=== PATIENT | male | born 1940 | race Caucasian/White ===

== ENCOUNTER 2017-07-11 15:48 | Emergency (ER) | payer OTHER, BC ==
[~2017-07-11] VITALS: Ht 177.8 cm; Wt 97.5 kg
[~2017-07-11 15:48] MED LIST: ALLOPURINOL 10100 M1 PO; ASPIR 8181 MG PO; BINOSTO70 MG; CELEBREX100 MG/1 C; CIPRO500 MG PO; CLONAZEPAM 0.50.5 M1 PO; COUMADIN 2.5MG2.5 M1 PO; CYMBALTA60 MG PO; DIFLUCAN200 MG PO; FLEXERIL PO; FLOMAX0.4 MG; FOLIC ACID 40400 MCG PO; GLUCOPHAGE PO; GLUCOSAMINE HC500 MG PO; HYDROCHLOROTHIA25 M2 PO; IRON325; KEFLEX500 MG PO; LANTUS SC; LASIX 40 MG TAB40 M2 PO; LISINOPRIL40 MG PO; LOPRESSOR25 PO; MACROBID 100 M100 M1 PO; NORVASC10 MG PO; PACERONE 200 M200 MG; POTASSIUM20 PO; PROZAC20 MG PO; TOPROL XL25 MG PO; TRAMADOL 50 MG50 MG PO; VITAMIN B122500 MCG; ZOCOR20 MG PO; ZOCOR40 MG PO; [UNRECOGNIZED DRUG - REMARK]
[2017-07-11 16:26] LABS: URINE BILIRUBIN NEGATIVE (Negative); URINE BLOOD 3+ (Negative); URINE CLARITY SL CLOUDY; URINE COLOR YELLOW; URINE GLUCOSE-RANDOM* NEGATIVE (Negative); URINE KETONES NEGATIVE (Negative); URINE LEUKOCYTES 3+ (Negative); URINE NITRITE NEGATIVE (Negative); URINE PROTEIN (DIPSTICK) 1+ (Negative); URINE SPECIFIC GRAVITY 1.025 (1.005-1.035); URINE UROBILINOGEN 0.2 E.U./dl (0.2-1.0)
[2017-07-11 16:32] LABS: CASTS None Seen /LPF (None Seen); MUCUS 0-3 Light strn/LPF (None Seen); SQUAMOUS 4-10 Moderate /LPF (0-3)
[2017-07-11 16:33] LABS: BACTERIA 1-9 Few /HPF (None Seen); CRYSTALS None Seen /LPF (None Seen); URINE RBC 3-10 Few /HPF (0-2); URINE WBC >25 Many /HPF (0-5); WBC CLUMPS Packed (None Seen)
[2017-07-11 17:15] LABS: ABSOLUTE NEUTROPHILS 2.6 thou/uL (1.4-8.2); BASOPHILS 1.1 % (0.0-2.0); EOSINOPHILS 8.5 % (0.0-3.0); HEMATOCRIT 36.7 % (42.0-52.0); HEMOGLOBIN 11.9 gm/dL (14.0-18.0); LYMPHOCYTES 28.6 % (24.0-44.0); MCH 25.1 pg (26.0-34.0); MCHC 32.5 g/dL (28.0-37.0); MCV 77.2 fL (80.0-100.0); PLATELET COUNT 229 thou/uL (150-400); POLYS 50.8 % (36.0-66.0); RBC 4.75 mil/uL (4.50-6.00); RDW 16.4 % (10.5-14.5); WBC 5.1 thou/uL (4.0-11.0)
[2017-07-11 17:34] LABS: CALCIUM 8.9 mg/dL (8.5-10.1); POTASSIUM 4.2 mmol/L (3.5-5.1)
[2017-07-11 17:37] LABS: ALBUMIN 2.8 g/dL (3.4-5.0); TOTAL BILIRUBIN 0.2 mg/dL (<0.1-1.0); TOTAL PROTEIN 7.1 g/dL (6.4-8.2)
[2017-07-11] MEDS ORDERED: BACTRIM DS TAB1 EACH PO (17:50)
[2017-07-11 19:55] VITALS: BP 131/67
== END 2017-07-11 19:56 | disposition home or self-care (01) ==
LOC: ER 15:48
PROVIDERS: Nurse Practitioner Family
DX: N39.0 Urinary tract infection, site not specified (principal); I10 Essential (primary) hypertension; E11.9 Type 2 diabetes mellitus without complications; E78.00 Pure hypercholesterolemia, unspecified

== ENCOUNTER 2018-01-06 17:13 | Inpatient (IN) | payer OTHER, BC ==
[~2018-01-06] VITALS: Ht 180.3 cm; Wt 108.9 kg
[~2018-01-06 17:13] MED LIST changes: +BACTRIM DS TAB1 EACH PO; +HYDROCODONE-AP1 EAC6 PO; +NORFLEX100 MG PO; +PRIMIDONE50 MG PO
[2018-01-06 17:16] VITALS: BP 161/84
[2018-01-06 17:58] LABS: ABSOLUTE NEUTROPHILS 4.5 thou/uL (1.4-8.2); BASOPHILS 0.9 % (0.0-2.0); EOSINOPHILS 4.7 % (0.0-3.0); HEMATOCRIT 37.7 % (42.0-52.0); HEMOGLOBIN 12.6 gm/dL (14.0-18.0); LYMPHOCYTES 16.1 % (24.0-44.0); MCH 26.2 pg (26.0-34.0); MCHC 33.4 g/dL (28.0-37.0); MCV 78.4 fL (80.0-100.0); MONOCYTES 8.6 % (1.0-8.0); PLATELET COUNT 238 thou/uL (150-400); POLYS 69.7 % (36.0-66.0); RBC 4.81 mil/uL (4.50-6.00); RDW 16.5 % (10.5-14.5); WBC 6.4 thou/uL (4.0-11.0)
[2018-01-06 18:07] LABS: CALCIUM 8.9 mg/dL (8.5-10.1); CREATININE 1.3 mg/dL (0.7-1.3); POTASSIUM 3.9 mmol/L (3.5-5.1)
[2018-01-06 18:14] LABS: ALBUMIN 2.8 g/dL (3.4-5.0); TOTAL BILIRUBIN 0.2 mg/dL (<0.1-1.0)
[2018-01-06 19:52] VITALS: BP 145/64
[2018-01-06 19:58] VITALS: BP 174/78
[2018-01-06] MEDS ORDERED: PROZAC20 MG PO (21:32)
[2018-01-06] MEDS ORDERED: OXYBUTYNIN 5 MG5 M2 PO (21:33)
[2018-01-06] MEDS ORDERED: PRIMIDONE50 MG PO (21:34)
[2018-01-07 00:33] VITALS: BP 174/78
[2018-01-07 08:02] VITALS: BP 150/82
[2018-01-08 01:13] VITALS: BP 150/82
[2018-01-08 08:00] VITALS: BP 147/71
[2018-01-08 20:03] VITALS: BP 126/69
[2018-01-09 08:00] VITALS: BP 154/64
[2018-01-09] MEDS ORDERED: CLEOCIN HCL150 MG PO (09:24)
[2018-01-09 09:35] VITALS: BP 154/64
== END 2018-01-09 11:48 | disposition home or self-care (01) | DRG 602 ==
LOC: ER 17:13 → 4W 19:32 → EROBS 19:32 → 4W 19:59 → ENTRNSPT 01-09 11:26 → EDTRNSPTSTS 01-09 11:28 → 4W 01-09 11:48
PROVIDERS: Emergency Medicine
DX: L03.115 Cellulitis of right lower limb (principal); E43 Unspecified severe protein-calorie malnutrition; E11.9 Type 2 diabetes mellitus without complications; I10 Essential (primary) hypertension; M62.84 Sarcopenia; I25.10 Atherosclerotic heart disease of native coronary artery without angina pectoris; E78.00 Pure hypercholesterolemia, unspecified; Z95.1 Presence of aortocoronary bypass graft; Z79.82 Long term (current) use of aspirin; Z79.899 Other long term (current) drug therapy; Z28.21 Immunization not carried out because of patient refusal
CPT/HCPCS: 10040

== ENCOUNTER → 2018-01-27 | Outpatient (CLI) | payer OTHER, BC ==
[~2018-01-27] MED LIST changes: +CLEOCIN HCL150 MG PO; +OXYBUTYNIN 5 MG5 M2 PO
== END ==
LOC: CAT 10:34
DX: S32.010A Wedge compression fracture of first lumbar vertebra, initial encounter for closed fracture (principal); S32.020A Wedge compression fracture of second lumbar vertebra, initial encounter for closed fracture; S32.040A Wedge compression fracture of fourth lumbar vertebra, initial encounter for closed fracture; K80.20 Calculus of gallbladder without cholecystitis without obstruction; D35.02 Benign neoplasm of left adrenal gland; M25.78 Osteophyte, vertebrae; X58.XXXA Exposure to other specified factors, initial encounter; Y93.89 Activity, other specified; Y92.89 Other specified places as the place of occurrence of the external cause; Y99.8 Other external cause status

== ENCOUNTER 2018-10-26 15:56 | Emergency (ER) | payer OTHER, BC ==
[~2018-10-26] VITALS: Ht 177.8 cm; Wt 104.3 kg
[2018-10-26] MEDS ORDERED: ULTRAM 50MG TAB50 MG PO (18:49)
[2018-10-26] MEDS ORDERED: VOLTAREN GEL 1100 G1 TOP (18:49)
[2018-10-26 19:09] VITALS: BP 140/70
== END 2018-10-26 19:10 | disposition home or self-care (01) ==
LOC: ER 15:56
DX: M25.511 Pain in right shoulder (principal); M25.512 Pain in left shoulder; E11.9 Type 2 diabetes mellitus without complications; I10 Essential (primary) hypertension; E78.00 Pure hypercholesterolemia, unspecified

== ENCOUNTER → 2019-10-04 | Outpatient (CLI) | payer OTHER, BC ==
[~2019-10-04] MED LIST changes: +ULTRAM 50MG TAB50 MG PO; +VOLTAREN GEL 1100 G1 TOP
== END ==
LOC: SJCVCIMAG 13:24
PROVIDERS: ATTEND Internal Medicine Cardiovascular Disease
DX: I08.0 Rheumatic disorders of both mitral and aortic valves (principal); I65.23 Occlusion and stenosis of bilateral carotid arteries; I48.0 Paroxysmal atrial fibrillation; E11.22 Type 2 diabetes mellitus with diabetic chronic kidney disease; I13.0 Hypertensive heart and chronic kidney disease with heart failure and stage 1 through stage 4 chronic kidney disease, or unspecified chronic kidney disease; N18.3 Chronic kidney disease, stage 3 (moderate); I50.32 Chronic diastolic (congestive) heart failure; D63.1 Anemia in chronic kidney disease; E11.00 Type 2 diabetes mellitus with hyperosmolarity without nonketotic hyperglycemic-hyperosmolar coma (NKHHC); I25.810 Atherosclerosis of coronary artery bypass graft(s) without angina pectoris; E78.00 Pure hypercholesterolemia, unspecified; M85.80 Other specified disorders of bone density and structure, unspecified site; Z95.1 Presence of aortocoronary bypass graft; Z79.82 Long term (current) use of aspirin; Z79.84 Long term (current) use of oral hypoglycemic drugs; Z79.899 Other long term (current) drug therapy; Z82.49 Family history of ischemic heart disease and other diseases of the circulatory system

== ENCOUNTER 2020-02-29 16:50 | Inpatient (IN) | payer OTHER, BC ==
[~2020-02-29] VITALS: Ht 177.8 cm; Wt 107.5 kg
[2020-03-01] VITALS: BP 134/94
--- NOTE | 2020-03-01 04:51 | NUR ---
pt is a transfer from [facility] for chf, pt is awake, alert and oriented, admission assessment completed and as charted, admission education completed, denies pain or sob, vss, denies any concerns at this time, will continue to monitor
[2020-03-01 05:00] VITALS: BP 140/90
[2020-03-01 07:30] VITALS: BP 131/82; BP 147/52
[2020-03-01 09:42] LABS: ALBUMIN 2.9 g/dL (3.4-5.0); CALCIUM 8.9 mg/dL (8.5-10.1); CREATININE 1.4 mg/dL (0.7-1.3); TOTAL BILIRUBIN 0.4 mg/dL (0.2-1.0); TOTAL PROTEIN 6.9 g/dL (6.4-8.2)
--- NOTE | 2020-03-01 09:57 | 2DMMODE ---
[facility] [place] [place] [address] [facility] [place] [address] 2 D/M-MODE ECHOCARDIOGRAM Name: CECE SORIANO Room #: 202-P ADM IN M.R.#: [id number] Admission: 03/01/20 Attend Phys: Terry Whitfield Discharge: Date of : 44 Report #: [id number] THIS REPORT FOR: cc: Terrence Genao MD, Stanley P. MD Mancuso, Gerald M. MD [facility] ~ APPROVED REPORT Study performed: 03/01/2020 08:32:46 EXAM: Comprehensive 2D, Doppler, and color-flow Echocardiogram Patient Location: Bedside Room #: 202 Status: routine BSA: 2.24 HR: 107 bpm BP: 140/90 mmHg Rhythm: Tachycardia Other Information Study Quality: Technically Difficult Technically limited study due to body habitus, inability to position patient. Indications Congestive Heart Failure Diabetes CAD Cardiomyopathy Hypertension/HDD HLD Echo Enhancing Agent Indication: Endocardial border delineation Agent(s) / Amount(s) Used: Optison 3 cc 2D Dimensions RVDd: 36.55 mm IVSd: 12.81 (7-11mm) LVOT Diam: 23.73 (18-24mm) LVDd: 53.67 mm PWd: 14.28 (7-11mm) Ascending Ao: 32.12 (22-36mm) LVDs: 45.96 (25-40mm) [facility] [place] [address] 2 D/M-MODE ECHOCARDIOGRAM Name: CECE SORIANO CHELLE Room #: 202-P ADM IN M.R.#: [id number] Admission: 03/01/20 Attend Phys: Terry Herrera Discharge: Date of : 44 Report #: [id number] Volumes Left Atrial Volume (Systole) Single Plane 4CH: 122.00 mL Single Plane 2CH: 129.83 mL LA ESV Index: 61.00 mL/m2 Aortic Valve AoV Peak Harish.: 2.92 m/s AO Peak Gr.: 34.21 mmHg LVOT Max P.14 mmHg AO Mean Gr.: 19.11 mmHg LVOT Mean P.65 mmHg AO V2 Mean: 2.06 m/s LVOT Max V: 0.53 m/s AO V2 VTI: 51.92 cm LVOT Mean V: 0.38 m/s ESTEBAN (VTI): 0.94 cm2 LVOT V1 VTI: 10.98 cm ESTEBAN Vmax: 0.81 cm2 SV (LVOT): 48.57 mL Mitral Valve MV Decel. Time: 101.64 ms MV E Max Harish.: 1.33 m/s IVRT: 83.04 ms Tricuspid Valve TR Peak Harish.: 2.95 m/s TR Peak Gr.: 34.83 mmHg Left Ventricle Left ventricle is at the upper limits of normal. There is severe global hypokinesis of the left ventricle. Mild to moderate concentric left ventricular hypertrophy. Left ventricular ejection fraction is severely decreased. LVEF is 20%. This study is not technically sufficient to allow evaluation of the LV diastolic function. Right Ventricle The right ventricle is normal size. Right ventricle is hypokinetic. Atria Left atrium is severely dilated. Right atrium is mildly dilated. Aortic Valve Aortic valve leaflets are sclerotic with decreased opening. Mild aortic regurgitation. Severe aortic valve stenosis. Calculated aortic valve area is 0.9 cm2 with maximum pressure gradient of 34 mmHg and mean pressure gradient of 19 mmHg. Mitral Valve [facility] [place] [place] [address] [place] [place] [address] 2 D/M-MODE ECHOCARDIOGRAM Name: CECE SORIANO Room #: 202-P ADM IN M.R.#: [id number] Admission: 03/01/20 Attend Phys: Terry Herrera Discharge: Date of : 44 Report #: [id number] Moderate mitral annular calcification. Moderate mitral regurgitation. No evidence of mitral valve stenosis. Tricuspid Valve The tricuspid valve is normal in structure. Mild tricuspid regurgitation. PAP is estimated at 35 mmHg + estimated RA pressure. Pulmonic Valve Pulmonic valve is not visualized. Great Vessels The aortic root is normal in size. IVC is not visualized. Pericardium There is no pericardial effusion. <Conclusion> Left ventricle is at the upper limits of normal. Mild to moderate concentric left ventricular hypertrophy. There is severe global hypokinesis of the left ventricle. LVEF is 20%. This study is not technically sufficient to allow evaluation of the LV diastolic function. The right ventricle is normal size. Left atrium is severely dilated. Right atrium is mildly dilated. Aortic valve leaflets are sclerotic with decreased opening. Mild aortic regurgitation. Severe aortic valve stenosis. Calculated aortic valve area is 0.9 cm2 with maximum pressure gradient of 34 mmHg and mean pressure gradient of 19 mmHg. Pulmonic valve is not visualized. The aortic root is normal in size. IVC is not visualized. There is no pericardial effusion. <ELECTRONICALLY SIGNED> By: Spencer Kiser MD, FACC 03/01/2056 5 5 Spencer Kiser MD, FACC /INF
--- NOTE | 2020-03-01 13:54 | NUR ---
PT WENT TO GET UP TO BATHROOM AND GET IN A WHEELCHAIR TO GO TO XRAY THIS MORNING. WHEN PT WAS UP HR WAS IN THE 180S. DR GALLEGOS ON UNIT, INSTRUCTED THIS RN TO CHANGE TO PORTABLE XRAY AND ORDERED AMIO GTT. PT RETURNED TO BED AND HR RETURNED TO LOW 100S AFTER A FEW MINUTES. AMIO STARTED AND EKG DONE PER DR GALLEGOS ORDERS
[2020-03-01 17:47] VITALS: BP 131/88
[2020-03-01 19:38] VITALS: BP 111/80
[2020-03-02] VITALS: BP 122/83
[2020-03-02 03:55] VITALS: BP 136/98
[2020-03-02 04:35] LABS: HEMATOCRIT 40.2 % (42.0-52.0); HEMOGLOBIN 12.8 gm/dL (14.0-18.0); MCH 26.4 pg (26.0-34.0); MCHC 31.8 g/dL (28.0-37.0); MCV 82.9 fL (80.0-100.0); RBC 4.84 mil/uL (4.50-6.00); RDW 16.6 % (10.5-14.5); WBC 5.4 thou/uL (4.0-11.0)
[2020-03-02 04:50] LABS: CALCIUM 9.1 mg/dL (8.5-10.1); CREATININE 1.6 mg/dL (0.7-1.3); POTASSIUM 3.9 mmol/L (3.5-5.1)
[2020-03-02 07:15] VITALS: BP 126/84
--- NOTE | 2020-03-02 08:17 | NUR ---
ASSUMED CARE OF THE PATIENT AT 1900; A0X4 AND FORGETFUL AND ANXIOUS AT TIMES; SOB WITH EXERTION; ST/BBB ON THE MONITOR/ ON AMIO GTT; ANXIOUS/ AWAKE THROUGHOUT THE MOST OF THE NOC; PLAN IS TO CONTINUE FLUID RESTRICTED DIET AND MAINTAIN ON AMIO GTT; WILL CONTINUE TO MONITOR.
[2020-03-02 11:35] VITALS: BP 116/85
[2020-03-02 15:50] VITALS: BP 97/63
[2020-03-02 20:24] VITALS: BP 113/82
--- NOTE | 2020-03-02 20:32 | NUR ---
ASSUMMED PT CARE AT APPROXIMATELY 0700. PT A&O X4. PT FORGETFUL AT TIMES. ASSESSMENT CHARTED. FALL PRECAUTIONS IN PLACE. PT DENIES HAVING CHEST PAIN. PT DENIES HAVING ACUTE PAIN. PT STATES HE HAS SOB ON EXERSION. PT O2 SAT STABLE. VITAL SIGNS STABLE. BLOOD SUGARS STABLE. EDUCATED PT AND PT'S FAMILY ABOUT POC. PT AND PT'S FAMILY STATED UNDERSTANDING AND DENIED HAVING FURTHER QUESTIONS. PT UP TO CHAIR THROUGHOUT SHIFT. PT AMBULATES C WALKER X 1. PT COMFORTABLE IN BED. PT DENIES HAVING FURTHER CONCERNS.
--- NOTE | 2020-03-03 03:15 | NUR ---
PATIENT VERY ANXIOUS AND COUGHING CONSTANTLY.GUIAFENESIN AND ATARAX GIVEN ORDERED.C/O PAIN DUE TO COUGHING.TRAMADOL GIVEN.MONITOR SHOWS SR/SA.POC CONTINUED.
[2020-03-03 04:19] LABS: CALCIUM 8.8 mg/dL (8.5-10.1); CREATININE 1.7 mg/dL (0.7-1.3); POTASSIUM 3.7 mmol/L (3.5-5.1)
--- NOTE | 2020-03-03 07:08 | EKG ---
[facility] [place] [address] ELECTROCARDIOGRAM REPORT Name: CECE SORIANO Room #: 202-P ADM IN M.R.#: [id number] Admission: 03/01/20 Attend Phys: Terry Whitfield Discharge: Date of : 44 Report #: [id number] THIS REPORT FOR: cc: Terrence Genao MD, Stanley P. MD Santiago, Patrick MD [facility] ~ THIS REPORT FOR: //name// [facility] Test Date: 2020-03-01 Test Time: 05:24:26 Pat Name: CECE SORIANO Department: Room: 202 P Gender: M Project Engineer: [email or web address] : 1940 Requested By: Rosy Rodriguez Order Number: [id number] MD: Chas Lane Measurements Intervals [place] Rate: 105 P: 127 TN: 142 QRS: -28 QRSD: 150 T: 158 QT: 387 QTc: 512 Interpretive Statements Sinus tachycardia Left bundle branch block Compared to ECG 10/13/2016 22:14:07 Sinus rhythm no longer present Electronically Signed On 03-03-2020 7:08:42 ACQUISITION MARKETING COORDINATOR by Chas Lane [email or web address] <ELECTRONICALLY SIGNED> By: Chas Lane MD, FACC 03/03/[address] MD, [facility] /EPI
--- NOTE | 2020-03-03 07:09 | EKG ---
[facility] [place] [address] ELECTROCARDIOGRAM REPORT Name: CECE SORIANO Room #: 202-P ADM IN M.R.#: [id number] Admission: 03/01/20 Attend Phys: Terry Whitfield Discharge: Date of : 44 Report #: [id number] THIS REPORT FOR: cc: Terrence Genao MD, Stanley P. MD Santiago, Patrick MD [facility] ~ THIS REPORT FOR: //name// [facility] Test Date: 2020-03-01 Test Time: 11:01:42 Pat Name: CECE SORIANO Department: Room: 202 P Gender: M Mult Au Matic Operator: oleg : 1940 Requested By: Spencer Kiser Order Number: [id number] MD: Chas Lane Measurements Intervals [place] Rate: 107 P: 158 NE: 158 QRS: -40 QRSD: 152 T: 154 QT: 387 QTc: 517 Interpretive Statements Sinus or ectopic atrial tachycardia Left bundle branch block Compared to ECG 03/01/2020 05:24:26 Sinus tachycardia no longer present Electronically Signed On 03-03-2020 7:09:45 TRANSPORTATION LOGISTICS INTERNSHIP by Chas Lane [email or web address] <ELECTRONICALLY SIGNED> By: Chas Lane MD, FACC 03/03/[address] MD, FAC /EPI
--- NOTE | 2020-03-03 07:13 | EKG ---
[facility] [place] [address] ELECTROCARDIOGRAM REPORT Name: CECE SORIANO Room #: 202-P ADM IN M.R.#: [id number] Admission: 03/01/20 Attend Phys: Terry Whitfield Discharge: Date of : 44 Report #: [id number] THIS REPORT FOR: cc: Terrence Genao MD, Stanley P. MD Santiago, Patrick MD [facility] ~ THIS REPORT FOR: //name// [facility] Test Date: 2020-03-02 Test Time: 08:23:31 Pat Name: CECE SORIANO Department: Room: 202 P Gender: M Manager Of Employee Relations: [facility] : 1940 Requested By: Terri Sellers Order Number: [id number] MD: Chas Lane Measurements Intervals [place] Rate: 98 P: [place]: QRS: -33 QRSD: 158 T: 160 QT: 415 QTc: 530 Interpretive Statements Suspect Atrial flutter with predominant 2:1 AV block Left bundle branch block Compared to ECG 03/01/2020 11:01:42 2:1 AV block now present Electronically Signed On 03-03-2020 7:13:41 TRUCK DRIVER RUBBISH COLLECTOR by Chas Lane [email or web address] <ELECTRONICALLY SIGNED> By: Chas Lane MD, FAC 03/03/[address] MD, [facility] /EPI
[2020-03-03 07:36] VITALS: BP 101/70
[2020-03-03 11:30] VITALS: BP 100/63
[2020-03-03 16:00] VITALS: BP 89/61
--- NOTE | 2020-03-03 17:07 | NUR ---
Patient admits with CHF. Dr Kiser on unit and wants to call Simon, on speaker phone to discuss poc. Discussed therapy evals in process and patient may be a candidate for 5N. reports she wants patient to return home. She reports she is aware of his heart failure and would like hospice services if appropriate. She reports her had a dtr that had and was on hospice services. She wants informational visit from [facility]. Dr Kiser in agreement with plan. Dr Snider in agreement with plan. Faxed referral packet to [facility] for review. Noted patient has a DPOA who is not Elvia. Erwin Wells [phone]. Called Mr Wells and discussed in dicussion with Elvia of possibly home with hospice. Mr Wells in agreement if patient appropriate for services. [facility] arranged peer to peer at 1500 today. Sp with Rebekah at [facility] who reports they plan admit to the home at 1400 tomorrow. Patient to dc in am. Notified Elvia. [facility] to sp with Elvia and Mr Wells. Casemgt following.
[2020-03-03 19:06] VITALS: BP 119/106
--- NOTE | 2020-03-03 19:24 | NUR ---
ASSUMED CARE OF PT AT SHIFT CHANGE. ASSESSMENTS CHARTED. MEDS GIVEN PER JUN. PT A&OX4, FORGETFUL, ANXIOUS. NO C/O PAIN. PLAN TO DC TOMORROW HOME WITH HOSPICE. TRANSFERRED TO 442 NO LONGER NEED TELE. DC'D TELE.
[2020-03-04 03:59] VITALS: BP 109/79
--- NOTE | 2020-03-04 05:45 | NUR ---
PT TARNSFERRED TO THE UNIT FROM 2N AT SHIFT CHANGE.PT VERY ANXIUOS AFTER SHIFT CHNAGE.PT STATED THAT HE WAS NOT HAPPY TO BE TRANSFERRED AT THE TIME.EMOTIONAL SUPPORT GIVEN.PT CALMED DOWN AND SETTLED IN HIS ROOM.PT WITH NON PRODUCTIVE COUGH.URINAL AT BEDSIDE O2 SAT AT 90% AT START OF SHIFT.PT PUT ON 2L/NC. NO BM SO FAR.REDNESS TO HIS R ARM FROM INFILTRATION.PT TO BE DC'S TODAY ON HOSPICE.CALL LIGHT WITHIN REACH.
[2020-03-04 07:05] VITALS: BP 100/65
--- NOTE | 2020-03-04 07:14 | NUR ---
[facility] LETTER ISSUED TO PATIENT AND OR ADMISSION PACKET
--- NOTE | 2020-03-04 07:15 | NUR ---
[facility] LETTER ISSUED TO PATIENT AND OR ADMISSION PACKET
[2020-03-04 10:10] VITALS: BP 100/68
[2020-03-04 12:00] LABS: ALBUMIN 2.8 g/dL (3.4-5.0); CALCIUM 8.9 mg/dL (8.5-10.1); CREATININE 1.7 mg/dL (0.7-1.3); POTASSIUM 3.8 mmol/L (3.5-5.1); TOTAL BILIRUBIN 0.5 mg/dL (0.2-1.0); TOTAL PROTEIN 6.9 g/dL (6.4-8.2)
--- NOTE | 2020-03-04 12:06 | NUR ---
I have reviewed the student documentation.
--- NOTE | 2020-03-04 13:53 | NUR ---
ON-GOING ASSESSMENT: MICHELE REVIEWED CHART AND SPOKE WITH PT AND HIS SIGNIFICANT OTHER ELVI. PLANS ARE FOR PT TO DISCHARGE HOME TODAY WITH HOSPICE. MICHELE SPOKE SHIRA ARTSI AT HOSPICE WHO REPORTS THEY HAVE PT SCHEDULED FOR ADMISSION AT HIS HOME THIS EVENING. PT REPORTS THE ADMIT TIME GOT MOVED UNTIL 6PM. CM NOTIFIED PTS SIGNIFICANT OTHER WELL DPAVA YUENG. THEY ARE AGREABLE WITH PLAN. HOSPICE REPORT DELIVERING EQUIPMENT NEEDED. CM FAXED DISCHARGE PAPERWORK TO HOSPICE. ELVI IS GOING TO COFFEE MACHINE TECHNICIAN PATIENT AROUND 1430 SHE REPORTS. PT REPORTS NO FURTHER NEEDS FROM MICHELE.
[2020-03-04 15:00] VITALS: BP 100/67
--- NOTE | 2020-03-04 16:58 | NUR ---
ASSUMED PT CARE THIS AM. PT VSS, A&OX4. PT INITIALLY REPORTING NO PAIN, BUT REPORTED PAIN IN THE SECOND HALF OF THE SHIFT. GIVEN MEDICATION FOR PAIN, MANAGED WELL. PT IV PATENT. STAFF ATTEMPTED TO AMBULATE PT EARLIER, PT WAS UNCOOPERATIVE/REFUSING TO STAND WITH STAFF. HOWEVER, WHEN PT NEEDED TO HAVE A BM, HE WOULD NOT LAY FLAT TO BE ABLE TO PLACE A BED VIDAL UNDERNEATH HIM. PT REPORTED BACK PAIN AT THIS TIME AND WAS GIVEN MEDS. AFTER THIS, PHYSICAL THERAPY WAS ABLE TO AMBULATE PT AND PT IS RECLINING IN THE CHAIR. PT IS YELLING AT STAFF AND IS BEING UNCOOPERATIVE WITH MOVING. PT HAS NON-PRODUCTIVE COUGH, GIVEN MEDS PER EMAR AT PT REQUEST. POWDER PLACED UNDER ABDOMEN FOR REDNESS. TOLL TESTBOARD WORKER WORKING WITH FAMILY AND TRANSPORTATION SERVICES TO GET PT HOME SAFELY. AT THIS TIME, IT WAS REPORTED TO ME THAT FAMILY WILL BE HERE BETWEEN 5-7 PM TO TAKE PT HOME.
== END 2020-03-04 17:53 | disposition hospice, home (50) | DRG 291 ==
LOC: 2N 16:50 → 4S 03-03 18:46
PROVIDERS: Nurse Practitioner Adult Health; Nurse Practitioner Family; ADMIT Hospitalist; ATTEND Hospitalist
DX: I13.0 Hypertensive heart and chronic kidney disease with heart failure and stage 1 through stage 4 chronic kidney disease, or unspecified chronic kidney disease (principal); I50.43 Acute on chronic combined systolic (congestive) and diastolic (congestive) heart failure; N17.0 Acute kidney failure with tubular necrosis; I47.2 Ventricular tachycardia; I35.0 Nonrheumatic aortic (valve) stenosis; I25.10 Atherosclerotic heart disease of native coronary artery without angina pectoris; E78.00 Pure hypercholesterolemia, unspecified; E11.22 Type 2 diabetes mellitus with diabetic chronic kidney disease; F03.90 Unspecified dementia, unspecified severity, without behavioral disturbance, psychotic disturbance, mood disturbance, and anxiety; K21.9 Gastro-esophageal reflux disease without esophagitis; I48.0 Paroxysmal atrial fibrillation; G47.33 Obstructive sleep apnea (adult) (pediatric); E03.9 Hypothyroidism, unspecified; N18.30 Chronic kidney disease, stage 3 unspecified; F41.9 Anxiety disorder, unspecified; F32.9 Major depressive disorder, single episode, unspecified; M85.80 Other specified disorders of bone density and structure, unspecified site; D63.1 Anemia in chronic kidney disease; E66.01 Morbid (severe) obesity due to excess calories; G89.29 Other chronic pain; E11.51 Type 2 diabetes mellitus with diabetic peripheral angiopathy without gangrene; M54.5 Low back pain; N40.0 Benign prostatic hyperplasia without lower urinary tract symptoms; Z66 Do not resuscitate; Z68.34 Body mass index [BMI] 34.0-34.9, adult; Z79.84 Long term (current) use of oral hypoglycemic drugs; Z95.1 Presence of aortocoronary bypass graft; Z79.899 Other long term (current) drug therapy; Z90.49 Acquired absence of other specified parts of digestive tract
CPT/HCPCS: 10081; 10102

== ENCOUNTER → 2020-04-14 | Outpatient (CLI) | payer OTHER, BC | LOC: RAD 14:49 | PROVIDERS: ATTEND Internal Medicine | DX: M19.012 Primary osteoarthritis, left shoulder (principal); I51.7 Cardiomegaly; M19.011 Primary osteoarthritis, right shoulder ==

== ENCOUNTER → 2020-05-01 | Outpatient (CLI) | payer OTHER, BC | LOC: SJCVC 14:32 | PROVIDERS: ATTEND Internal Medicine Cardiovascular Disease | DX: I48.92 Unspecified atrial flutter (principal); R94.31 Abnormal electrocardiogram [ECG] [EKG]; I12.9 Hypertensive chronic kidney disease with stage 1 through stage 4 chronic kidney disease, or unspecified chronic kidney disease; E11.22 Type 2 diabetes mellitus with diabetic chronic kidney disease; N18.30 Chronic kidney disease, stage 3 unspecified; E78.00 Pure hypercholesterolemia, unspecified; M85.80 Other specified disorders of bone density and structure, unspecified site; I25.810 Atherosclerosis of coronary artery bypass graft(s) without angina pectoris; Z95.1 Presence of aortocoronary bypass graft; Z90.49 Acquired absence of other specified parts of digestive tract; Z79.82 Long term (current) use of aspirin; Z79.84 Long term (current) use of oral hypoglycemic drugs; Z79.899 Other long term (current) drug therapy; Z82.49 Family history of ischemic heart disease and other diseases of the circulatory system ==